=== PATIENT | female | born 1990 | race Hispanic/Latino ===

== ENCOUNTER 2021-02-25 13:52 | Emergency (ER) | payer BC, SELFPAY ==
[2021-02-25 14:47] LABS: Absolute Lymphocytes (CBC) 2.5 K/uL (0.7-4.9); Hematocrit 38.5 % (36.0-45.0); Lymphocytes % 31.3 % (15.3-44.8); MPV 8.8 fL (7.6-11.3); RBC Red Blood Cell Count 4.27 M/uL (3.86-4.86)
[2021-02-25 15:05] LABS: BUN Blood Urea Nitrogen 6 mg/dL (7-18); Bicarbonate 24 mmol/L (21-32); Glucose Level 85 mg/dL (74-106); Potassium 3.3 mmol/L (3.5-5.1); Sodium Level 136 mmol/L (136-145)
[2021-02-25 15:19] LABS: HCG, Quantitative 6169 mIU/mL (1-3)
[2021-02-25 16:03] LABS: Urine Blood 3+ (Negative); Urine Glucose Negative (Negative); Urine Protein 1+ (Negative); Urine Specific Gravity 1.025 (1.005-1.030)
[2021-02-25 16:13] LABS: Urine Specific Gravity/Preg 1.025 (1.005-1.030)
--- NOTE | 2021-02-25 16:52 | RAD REPORT ---
EXAM DESCRIPTION: US - Transvaginal OB - 02/25/2021 4:30 pm CLINICAL HISTORY: with spontaneous COMPARISON: None. FINDINGS: The uterus measures 9 x 4 x 5 centimeters. The endometrial stripe measures 4 millimeters. A gestational sac is not seen. Ovaries are normal in size and echotexture.. The right and left adnexa unremarkable No significant free fluid IMPRESSION: Nonvisualization of a gestational sac within the endometrium. These findings presumably indicate a complete . Given the positive beta HCG other considerations include a very early or ectopic . This all should be correlated clinically and with serial beta HCG levels. Followup endovaginal sonog jenise may be helpful for re-evaluation
--- NOTE | 2021-02-25 17:20 | ER ---
Nurse's Notes [facility] Name: Jose Chen Age: 30 yrs Sex: Female : 1990 Arrival Date: 02/25/2021 Time: 13:54 Bed 18 Private MD: Diagnosis: Complete or unspecified spontaneous with other complications Presentation: 02/25 14:01 Chief complaint: Patient states: Had a miscarriage 3 weeks ago and has been bleeding ww since then. She admits to passing large clots and having sharp pelvic/uterine pain. Coronavirus screen: Vaccine status: Patient reports receiving the 2nd dose of the covid vaccine. Client denies travel out of the [place] in the last 14 days. Ebola Screen: Patient negative for fever greater than or equal to 101.5 degrees Fahrenheit, and additional compatible Ebola Virus Disease symptoms Patient denies exposure to infectious person. Patient denies travel to an Ebola-affected area in the 21 days before illness onset. Initial Sepsis Screen: Does the patient meet any 2 criteria? No. Patient's initial sepsis screen is negative. Does the patient have a suspected source of infection? No. Patient's initial sepsis screen is negative. Risk Assessment: Do you want to hurt yourself or someone else? Patient reports no desire to harm self or others. Onset of symptoms was February 08, 2021. 14:01 Method Of Arrival: Ambulatory ww 14:01 Acuity: ANA 3 ww Triage Assessment: 14:03 General: Appears in no apparent distress. comfortable, Behavior is calm, cooperative, ww appropriate for age. Pain: Complains of pain in suprapubic area. EENT: No deficits noted. No signs and/or symptoms were reported regarding the EENT system. Neuro: Level of Consciousness is awake, alert, obeys commands, Oriented to person, place, time, situation, Speech is normal. Cardiovascular: Denies chest pain, shortness of breath, Capillary refill < 3 seconds Patient's skin is warm and dry. Respiratory: Airway is patent Respiratory effort is even, unlabored, Respiratory pattern is regular, symmetrical. GI: No deficits noted. No signs and/or symptoms were reported involving the gastrointestinal system. : No deficits noted. Reports vaginal bleeding that is with clots. Derm: Skin is intact, is healthy with good turgor, Skin is pink, warm \\T\\ dry. Musculoskeletal: No deficits noted. No signs and/or symptoms reported regarding the musculoskeletal system. 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 - Social history:: Smoking status: Reported history of juuling and/or vaping. Screenin:04 Abuse screen: Denies threats or abuse. Denies injuries from another. Nutritional ww screening: No deficits noted. Tuberculosis screening: No symptoms or risk factors identified. Fall Risk None identified. Assessment: 14:40 General: Appears in no apparent distress. comfortable, Behavior is calm, cooperative. eo2 Neuro: Level of Consciousness is awake, alert, obeys commands, Oriented to person, place, time, situation, Reports dizziness, "lightheadedness". Denies headache. Cardiovascular: No deficits noted. Denies chest pain, shortness of breath. Respiratory: No deficits noted. Airway is patent Breath sounds are clear bilaterally. GI: Reports lower abdominal pain, nausea, since onset today around 1330 after eating lunch. Pt reports miscarriage from "1st weekend in February", reports she's been bleeding since the miscarriage and started passing "blood clots on ", pt reports using 1pad/hr. . : No signs and/or symptoms were reported regarding the genitourinary system. Vital Signs: 14:01 BP 112 / 55; Pulse 87; Resp 18; Temp 97.9; Pulse Ox 100% on R/A; Weight 77.11 kg; ww Height 5 ft. 4 in. (162.56 cm); Pain 3/10; 14:40 BP 108 / 65; Pulse 75; Resp 15; Pulse Ox 100% ; Pain 4/10; eo2 16:37 BP 106 / 57; Pulse 68; Resp 15; Pulse Ox 100% ; Pain 3/10; eo2 17:00 BP 103 / 65; Pulse 75; Resp 16; Pulse Ox 100% ; Pain 2/10; eo2 14:01 Body Mass Index 29.18 (77.11 kg, 162.56 cm) ED Course: 13:54 Patient arrived in ED. ds1 14:03 Triage completed. ww 14:03 Arm band placed on left wrist. ww 14:07 Mark Owen PA is PHCP. jr8 14:07 Darrion Cevallos MD is Attending Physician. jr8 14:16 Araseli Bell, RN is Primary Nurse. eo2 14:30 Inserted saline lock: 20 gauge in right antecubital area, using aseptic technique. eo2 Blood collected. 14:44 Patient has correct armband on for positive identification. Pulse ox on. NIBP on. Door eo2 closed. Noise minimized. Warm blanket given. 14:44 No provider procedures requiring assistance completed. eo2 16:30 Transvaginal OB US In Process Unspecified. EDAK 17:18 Will Gaspar MD is Referral Physician. jr8 17:48 IV discontinued, intact, bleeding controlled, No redness/swelling at site. ld1 Administered Medications: 17:31 Drug: Ketorolac 30 mg Route: IVP; Site: right antecubital; eo2 17:48 Follow up: Response: No adverse reaction ld1 Outcome: 17:19 Discharge ordered by . jr8 17:48 Discharged to home ambulatory, with family. ld1 17:48 Condition: stable 17:48 Discharge instructions given to patient, Instructed on discharge instructions, follow up and referral plans. Demonstrated understanding of instructions, follow-up care. 17:49 Patient left the ED. ld1 Signatures: Dispatcher [employer] [facility] VásquezLakshmi levi ds1 Mark Owen PA PA jr8 Bee Zelaya RN RN ld1 Lucille Marquez RN RN ww Araseli Bell RN RN eo2
--- NOTE | 2021-02-25 17:20 | EDPHYS ---
Physician Documentation [facility] Name: Jose Chen Age: 30 yrs Sex: Female : 1990 Arrival Date: 02/25/2021 Time: 13:54 Bed 18 Private MD: ED Physician Darrion Cevallos HPI: 02/25 15:59 This 30 yrs old Female presents to ER via Ambulatory with complaints of Pelvic jr8 Pain, Low abd pain. 15:59 The patient has experienced a previous episode. The patient has not recently seen a jr8 physician. This is a 30-year-old female that presented to the emergency room with complaints of continued vaginal bleeding and lower abdominal pain. Patient stated that her last menstrual period was on January 02 and about 2 weeks ago had a miscarriage. Patient stated that she has had continuous bleeding with large clots since then and for the past week has now had lower abdominal cramping that is intermittent in nature. Got so bad today that she presented to the emergency room for further evaluation. Has not seen an cupola man and has not had official ultrasound since her [id number] test was completed. 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 - Social history:: Smoking status: Reported history of juuling and/or vaping. ROS: 15:59 Eyes: Negative for injury, pain, redness, and discharge, ENT: Negative for injury, jr8 pain, and discharge, Neck: Negative for injury, pain, and swelling, Cardiovascular: Negative for chest pain, palpitations, and edema, Respiratory: Negative for shortness of breath, cough, wheezing, and pleuritic chest pain, Abdomen/GI: Negative for abdominal pain, nausea, vomiting, diarrhea, and constipation, Back: Negative for injury and pain, MS/Extremity: Negative for injury and deformity, Skin: Negative for injury, rash, and discoloration, Neuro: Negative for headache, weakness, numbness, tingling, and seizure. 15:59 : Positive for vaginal bleeding, Lower pelvic cramping. Exam: 15:59 Constitutional: This is a well developed, well nourished patient who is awake, alert, jr8 and in no acute distress. Cardiovascular: Regular rate and rhythm with a normal S1 and S2. No gallops, murmurs, or rubs. Normal PMI, no JVD. No pulse deficits. Respiratory: Lungs have equal breath sounds bilaterally, clear to auscultation and percussion. No rales, rhonchi or wheezes noted. No increased work of breathing, no retractions or nasal flaring. 15:59 Back: No spinal tenderness. No costovertebral tenderness. Full range of motion. Skin: Warm, dry with normal turgor. Normal color with no rashes, no lesions, and no evidence of cellulitis. MS/ Extremity: Pulses equal, no cyanosis. Neurovascular intact. Full, normal range of motion. Neuro: Awake and alert, GCS 15, oriented to person, place, time, and situation. Cranial nerves II-XII grossly intact. Motor strength 5/5 in all extremities. Sensory grossly intact. 15:59 Abdomen/GI: Inspection: abdomen appears normal, Bowel sounds: active, all quadrants, Palpation: soft, in all quadrants, mild abdominal tenderness, in the left lower quadrant, mass, is not appreciated, rebound tenderness, is not appreciated, voluntary guarding, is not appreciated, involuntary guarding, is not appreciated, no appreciated organomegaly, Indicators: McBurney's point is not tender, Deluca's sign is negative, Rovsing's sign is negative, Liver: tenderness, is not appreciated. Vital Signs: 14:01 BP 112 / 55; Pulse 87; Resp 18; Temp 97.9; Pulse Ox 100% on R/A; Weight 77.11 kg; ww Height 5 ft. 4 in. (162.56 cm); Pain 3/10; 14:40 BP 108 / 65; Pulse 75; Resp 15; Pulse Ox 100% ; Pain 4/10; eo2 16:37 BP 106 / 57; Pulse 68; Resp 15; Pulse Ox 100% ; Pain 3/10; eo2 17:00 BP 103 / 65; Pulse 75; Resp 16; Pulse Ox 100% ; Pain 2/10; eo2 14:01 Body Mass Index 29.18 (77.11 kg, 162.56 cm) ww MDM: 14:08 Patient medically screened. 8 15:59 Data reviewed: vital signs, nurses notes, lab test result(s), radiologic studies, jr8 ultrasound. Data interpreted: Pulse oximetry: on room air is 100 %. Interpretation: normal. Counseling: I had a detailed discussion with the patient and/or guardian regarding: the historical points, exam findings, and any diagnostic results supporting the discharge/admit diagnosis, lab results, radiology results. 17:17 ED course: Discussed hCG and ultrasound with Dr. Gaspar. Recommends 48-hour redraw and nav will see her on regardless. Discussed this with patient and she is good with this at this time as well.. 02/25 14:08 Order name: Abo/rh Typing; Complete Time: 15:47 [facility] 02/25 14:08 Order name: Basic Metabolic Panel; Complete Time: 15:47 [facility] 02/25 14:08 Order name: CBC with Diff; Complete Time: 15:47 [facility] 02/25 14:08 Order name: Quantitative Hcg; Complete Time: 15:47 [facility] 02/25 16:02 Order name: Urine Dipstick-Ancillary; Complete Time: 16:09 EDUT 02/25 16:03 Order name: Urine --Ancillary (enter results); Complete Time: 16:15 02/25 14:08 Order name: IV Saline Lock; Complete Time: 14:45 [facility] 02/25 14:08 Order name: Labs collected and sent; Complete Time: 14:45 [facility] 02/25 14:08 Order name: NPO; Complete Time: 14:45 [facility] 02/25 14:08 Order name: Urine Dipstick-Ancillary (obtain specimen); Complete Time: 16:36 [facility] 02/25 14:08 Order name: Urine Test (obtain specimen); Complete Time: 16:35 [facility] 02/25 15:48 Order name: Transvaginal OB US; Complete Time: 17:01 [facility] Administered Medications: 17:31 Drug: Ketorolac 30 mg Route: IVP; Site: right antecubital; eo2 17:48 Follow up: Response: No adverse reaction ld1 Disposition: 01/19 08:18 Co-signature as Attending Physician, Darrion Cevallos MD I agree with the assessment and aziza plan of care. Disposition Summary: 02/25/21 17:19 Discharge Ordered Location: Home jr Problem: new jr8 Symptoms: have improved jr8 Condition: Stable jr8 Diagnosis - Complete or unspecified spontaneous with other complications jr8 Followup: jr8 - With: Will Gaspar MD - When: 48 Hours - Reason: Recheck today's complaints, Continuance of care, Re-evaluation by your physician Followup: jr8 - With: Emergency Department - When: 48 Hours - Reason: Repeat Beta-HCG (48 Hours) Discharge Instructions: - Discharge Summary Sheet jr8 - Ectopic jr8 - Miscarriage jr8 Forms: - Medication Reconciliation Form jr8 - Thank You Letter jr8 - Antibiotic Education jr8 - Prescription Opioid Use jr8 Signatures: Dispatcher [employer] [facility] Darrion Cevallos MD MD cha Roszak, Josh, PA PA jr8 Lucille Marquez RN RN ww Araseli Bell RN RN eo2 Bee Zelaya RN ld1
[2021-02-25] MEDS ORDERED: KETOROLAC 30 MG/ML INJ ONE (17:32)
[2021-02-25 18:00] VITALS: TEMP 97.9; O2SAT 100
[2021-02-25 18:14] VITALS: BP 103/65
== END 2021-02-25 17:49 | disposition home or self-care (01) ==
LOC: ER 13:52
DX: O03.89 Complete or unspecified spontaneous abortion with other complications (principal)
CPT/HCPCS: 36415; 76817; 80048; 81003; 81025; 84702; 85025; 86900; 86901; 96374; 99284

== ENCOUNTER 2021-03-05 11:34 | Emergency (ER) | payer OTHER ==
[2021-03-05] MEDS ORDERED: ONDANSETRON 4 MG/2 ML VIAL ONE (12:12)
[2021-03-05] MEDS ORDERED: NA CHLORIDE 0.9% 1,000 ML ONE (12:12)
[2021-03-05] MEDS ORDERED: DICYCLOMINE HCL 20 MG/2 ML AMP IM ONE (12:12)
[2021-03-05 12:41] LABS: Absolute Lymphocytes (CBC) 1.5 K/uL (0.7-4.9); Hematocrit 37.6 % (36.0-45.0); Lymphocytes % 17.5 % (15.3-44.8); RBC Red Blood Cell Count 4.12 M/uL (3.86-4.86)
[2021-03-05 13:13] LABS: Albumin 3.6 g/dL (3.4-5.0); Bilirubin Direct 0.1 mg/dL (0-0.2); Bilirubin Total 0.4 mg/dL (0.2-1.0); Potassium 4.4 mmol/L (3.5-5.1); Protein, Total 7.1 g/dL (6.4-8.2)
[2021-03-05 13:28] LABS: Urine Blood 2+ (Negative); Urine Glucose Negative (Negative); Urine Protein Negative (Negative)
[2021-03-05 13:39] LABS: SARS-COV-2 RT PCR NEGATIVE (NEGATIVE)
[2021-03-05 13:41] LABS: Urine Amorphous Sediment 3+ /HPF (NONE SEEN); Urine Bacteria 20-50 /HPF (<20)
[2021-03-05] MEDS ORDERED: NA CHLORIDE 0.9% 2,000 ML ONE (16:02)
[2021-03-05] MEDS ORDERED: MORPHINE 2 MG/ML SYR ONE (16:02)
--- NOTE | 2021-03-05 16:10 | RAD REPORT ---
EXAM DESCRIPTION: US - Transvaginal OB - 03/05/2021 3:18 pm CLINICAL HISTORY: lower abdomen pain, with elevating beta HCG COMPARISON: Transvaginal OB dated 02/25/2021 TECHNIQUE: Endovaginal sonography was performed but was limited due to patient pain. Limited transab dominal assessment performed as well. FINDINGS: No intrauterine gestational sac or sac remnant. No hematoma or other endometrial abnormali ty seen. No myometrial mass identified. Uterine size is similar to the February 25 study. The left adnexa there is a 16-17 mm rounded cystic mass. Focal echogenic material within this cystic mass. This has the appearance of a gestational sac and pole. Cardiac activity could not be conf irmed with what appears to be the pole. A yolk sac was not seen. There is surrounding hypervasc ular echogenic tissue in a very typical "Ring of fire" appearance. Surrounding tissues are a amorphou s. A clearly definable left ovary was not seen. The heterogeneous material surrounding the left adnex al gestational sac could be hemorrhagic material. There is fluid in the cul de sac is well is echogen ic material that may be hemorrhagic byproducts. Right ovary could not be clearly defined due to bowel. No right adnexal mass was identified. The size of the ectopic mass is difficult due to poor demarcation with surrounding tissues. Estimated size is 2.1 x 2.1 x 3.0 cm. Findings were telephoned to the referring clinician at the time of the study. IMPRESSION: Left ectopic . The left adnexal gestational sac contains a pole but no ca rdiac activity could be confirmed. Fluid and hemorrhagic material identified in the cul de sac and the heterogeneous tissue surrounding the ectopic is probably hemorrhagic material as well. There is no intrauterine gestational sac, sac remnant or hematoma.
--- NOTE | 2021-03-05 18:40 | EDPHYS ---
Physician Documentation [facility] Name: Jose Chen Age: 30 yrs Sex: Female : 1990 Arrival Date: 03/05/2021 Time: 11:35 Bed 17 Private MD: ED Physician Kianna Jasso HPI: 03/05 11:55 This 30 yrs old Female presents to ER via EMS with complaints of Abdominal cp Pain. 11:55 The patient presents with abdominal pain in the lower abdomen. cp 11:55 Onset: The symptoms/episode began/occurred gradually, and became worse today. cp 11:55 The symptoms do not radiate. Associated signs and symptoms: Pertinent negatives: cp vaginal bleeding. 11:55 The symptoms are described as constant. Severity of pain: in the emergency department cp the pain. 11:55 Patient returns to ED after being seen 02-25-2021 for vaginal bleeding during . cp Patient reports she was diagnosed with miscarriage and instructed to f/u with DR Burnett. Patient reports she did not f/u, vaginal bleeding stopped but pain continued and is now worse today. 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 ROS: 12:00 Constitutional: Negative for body aches, chills, fever, poor PO intake. cp 12:00 Eyes: Negative for injury, pain, redness, and discharge. cp 12:00 ENT: Negative for ear pain, sore throat, difficulty swallowing, difficulty handling secretions. 12:00 Respiratory: Negative for cough, shortness of breath, wheezing. 12:00 Abdomen/GI: Positive for abdominal pain, of the suprapubic area, Negative for vomiting, diarrhea, constipation. 12:00 Back: Negative for radiated pain. 12:00 : Negative for urinary symptoms, vaginal bleeding, vaginal discharge. 12:00 Neuro: Negative for altered mental status, headache, weakness. 12:00 All other systems are negative. Exam: 12:05 Constitutional: The patient appears in no acute distress, alert, awake, non-toxic, well cp developed, well nourished. 12:05 Head/Face: Normocephalic, atraumatic. cp 12:05 Eyes: Periorbital structures: appear normal, Conjunctiva: normal, no exudate, no injection, Lids and lashes: appear normal, bilaterally. 12:05 ENT: External ear(s): are unremarkable, Nose: is normal, Mouth: Lips: moist, Oral mucosa: moist, Posterior pharynx: Airway: no evidence of obstruction, patent. 12:05 Chest/axilla: Inspection: normal, Palpation: is normal, no crepitus, no tenderness. 12:05 Cardiovascular: Rate: normal, Rhythm: regular. 12:05 Respiratory: the patient does not display signs of respiratory distress, Respirations: normal, no use of accessory muscles, Breath sounds: are clear throughout, no decreased breath sounds. 12:05 Abdomen/GI: Inspection: abdomen appears normal, Bowel sounds: active, all quadrants, cp Palpation: soft, in all quadrants, moderate abdominal tenderness, in the suprapubic area, rebound tenderness, is not appreciated, voluntary guarding, is elicited in the suprapubic area. 12:05 Back: CVA tenderness, is absent. cp 12:05 Neuro: Orientation: to person, place \\T\\ time. Mentation: is normal, Motor: moves all fours, strength is normal. Vital Signs: 11:35 BP 112 / 63; Pulse 63; Resp 16; Temp 98.4; Pulse Ox 100% ; bp 12:56 BP 98 / 53; Pulse 51; Resp 18; Pulse Ox 100% on R/A; ld1 14:12 BP 102 / 65; Pulse 56; Resp 16; Pulse Ox 100% ; bp 15:19 BP 102 / 61; Pulse 56; Resp 16; Pulse Ox 100% ; bp 16:00 BP 95 / 66; Pulse 60; Resp 16; Pulse Ox 100% ; bp 17:00 BP 98 / 53; Pulse 51; Resp 15; Pulse Ox 100% ; bp 18:00 BP 101 / 63; Pulse 53; Resp 16; Pulse Ox 100% ; bp MDM: 11:36 Patient medically screened. cp 15:44 Physician consultation: Will Burnett MD was called at 15:40, regarding consult, cp patient's condition, called to L\\T\\D and left message, message left on voicemail. 15:45 Data reviewed: vital signs, nurses notes, lab test result(s), radiologic studies, cp ultrasound. 18:00 Physician consultation: Will Burnett MD was called at 18:00, message left on cp voicemail, labor and delivery contacted and reports DR Burnett has left the hospital, attempt to call home. 18:32 Physician consultation: Will Burnett MD was contacted at 18:25, regarding consult, cp patient's condition, discussed option of laparoscopic surgery to remove ectopic vs methotrexate and observation. If DR Naidu is available for laparoscopic procedure admit to her or if patient prefers methotrexate admit to him. DR burnett returned call at [address] Naidu is out of town and to transfer patient if laparoscopic procedure is preferred. 19:04 Physician consultation: was contacted at 19:00, regarding regarding transfer, [facility] consult, patient's condition, accepting physician will be DR Roland. 03/05 11:48 Order name: Basic Metabolic Panel; Complete Time: 14:29 cp 03/05 14:29 Interpretation: Normal except: CL 110; GFR 75. cp 03/05 11:48 Order name: CBC with Diff; Complete Time: 12:52 cp 03/05 12:52 Interpretation: Normal except: PRIMO% 75.9. cp 03/05 11:48 Order name: Hepatic Function; Complete Time: 14:29 cp 03/05 11:48 Order name: Lipase; Complete Time: 14:29 cp 03/05 11:48 Order name: Beta hcg; Complete Time: 14:29 cp 03/05 14:29 Interpretation: Abnormal: HCGQ 72881. cp 03/05 11:48 Order name: COVID-19/FLU A+B (Document "Date of Onset" if Symptomatic); Complete Time: cp 14:03/05 11:48 Order name: Urine Microscopic Only; Complete Time: 14:29 cp 03/05 15:45 Interpretation: Normal except: UWBC 10-20; URBC 5-10; UBACT 20-50; SQEPI 5-10; AMORPH cp 3+. 03/05 13:28 Order name: Urine Dipstick-Ancillary; Complete Time: 14:29 EDMS 03/05 13:29 Order name: Urine --Ancillary (enter results); Complete Time: 14:29 bd 03/05 13:42 Order name: Urine Culture EDTN 03/05 14:31 Order name: US Transvaginal Ob; Complete Time: 16:52 cp 03/05 11:48 Order name: IV Saline Lock; Complete Time: 12:30 cp 03/05 11:48 Order name: Labs collected and sent; Complete Time: 12:30 cp 03/05 11:48 Order name: Urine Dipstick-Ancillary (obtain specimen); Complete Time: 13:28 cp 03/05 11:48 Order name: Urine Test (obtain specimen); Complete Time: 13:28 cp 03/05 17:04 Order name: NPO; Complete Time: 17:42 cp Administered Medications: 12:29 Drug: NS 0.9% 1000 ml Route: IV; Rate: 1 bolus; Site: right antecubital; bp 12:29 Drug: Zofran (Ondansetron) 4 mg Route: IVP; Site: right antecubital; bp 15:19 Follow up: Response: No adverse reaction bp 12:29 Drug: Bentyl (dicyclomine) 20 mg Route: IM; Site: right gluteus; bp 15:19 Follow up: Response: No adverse reaction bp 15:45 Drug: morphine 2 mg Route: IVP; Site: right antecubital; bp 15:45 Drug: NS 0.9% 1000 ml Route: IV; Rate: 1 bolus; Site: right antecubital; bp 15:45 Drug: NS 0.9% 1000 ml Route: IV; Rate: 125 ml/hr; Site: right antecubital; bp 18:50 Drug: Ketorolac 15 mg Route: IVP; Site: right antecubital; bp Disposition Summary: 03/05/21 18:38 Transfer Ordered Transfer Location: Other Acute Care Facility cp Reason: Higher level of care cp Condition: Stable cp Problem: new cp Symptoms: have improved cp Accepting Physician: Doctor(03/05/21 20:16) tk1 Diagnosis - Other ectopic without intrauterine - left cp Forms: - Medication Reconciliation Form cp - SBAR form cp Signatures: Dispatcher [employer] [facility] Darrion Luna PA PA cp Peltier, Brian, RN RN Ellen Piper tk1 Corrections: (The following items were deleted from the chart) 11:44 11:38 Allergies: Tetanus Vaccines \\T\\ Toxoid; bp 15:33 15:31 4, Full Term 1, 2, Living 1, LMP 01/06/2021, Verified, cp EDC 10/13/2021, Gestational age from LMP: 8 weeks 2 days cp 20:16 18:38 Doctor cp tk1
--- NOTE | 2021-03-05 18:40 | ER ---
Nurse's Notes [facility] Name: Jose Chen Age: 30 yrs Sex: Female : 1990 Arrival Date: 03/05/2021 Time: 11:35 Bed 17 Private MD: Diagnosis: Other ectopic without intrauterine -left Presentation: 03/05 11:35 Chief complaint: EMS states: MISCARRIAGE ON 02/08, . BLQ PAIN WORSE TODAY. bp Coronavirus screen: At this time, the client does not indicate any symptoms associated with coronavirus-19. Ebola Screen: No symptoms or risks identified at this time. Initial Sepsis Screen: Does the patient meet any 2 criteria? No. Patient's initial sepsis screen is negative. Does the patient have a suspected source of infection? No. Patient's initial sepsis screen is negative. Risk Assessment: Do you want to hurt yourself or someone else? Patient reports no desire to harm self or others. Onset of symptoms was March 05, 2021. 11:35 Method Of Arrival: EMS: [facility] bp 11:35 Acuity: ANA 3 bp Triage Assessment: 11:45 General: Appears distressed, uncomfortable, obese, Behavior is cooperative, appropriate bp for age, anxious. Pain: Complains of pain in right lower quadrant and left lower quadrant. EENT: No deficits noted. Neuro: No deficits noted. Cardiovascular: No deficits noted. Respiratory: No deficits noted. GI: Reports lower abdominal pain, nausea. : No signs and/or symptoms were reported regarding the genitourinary system. Derm: No deficits noted. Musculoskeletal: No deficits noted. 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 Screenin:45 Abuse screen: Denies threats or abuse. Denies injuries from another. Nutritional bp screening: No deficits noted. Tuberculosis screening: No symptoms or risk factors identified. Fall Risk None identified. Assessment: 11:45 General: SEE TRIAGE NOTE. bp 12:56 Reassessment: Patient appears in no apparent distress at this time. ld1 14:14 Reassessment: No changes from previously documented assessment. Patient and/or family bp updated on plan of care and expected duration. Pain level reassessed. 15:18 Reassessment: PT RETURNED FROM [facility]. bp 16:00 Reassessment: No changes from previously documented assessment. Patient and/or family bp updated on plan of care and expected duration. Pain level reassessed. 18:00 Reassessment: No changes from previously documented assessment. Patient and/or family bp updated on plan of care and expected duration. Pain level reassessed. OB CONSULTED BY PROVIDER. PT NPO, DISPO PENDING. 19:17 Reassessment: REPORT TO LEATHA DE SOUZA AT [facility] FOR RM [id number]. bp Vital Signs: 11:35 BP 112 / 63; Pulse 63; Resp 16; Temp 98.4; Pulse Ox 100% ; bp 12:56 BP 98 / 53; Pulse 51; Resp 18; Pulse Ox 100% on R/A; ld1 14:12 BP 102 / 65; Pulse 56; Resp 16; Pulse Ox 100% ; bp 15:19 BP 102 / 61; Pulse 56; Resp 16; Pulse Ox 100% ; bp 16:00 BP 95 / 66; Pulse 60; Resp 16; Pulse Ox 100% ; bp 17:00 BP 98 / 53; Pulse 51; Resp 15; Pulse Ox 100% ; bp 18:00 BP 101 / 63; Pulse 53; Resp 16; Pulse Ox 100% ; bp ED Course: 11:35 Patient arrived in ED. bp 11:36 Darrion Luna PA is PHCP. cp 11:36 Kianna Jasso MD is Attending Physician. cp 11:38 Triage completed. bp 11:45 Patient has correct armband on for positive identification. Bed in low position. Call bp light in reach. Side rails up X2. 11:53 Saji Moses, AP is Primary Nurse. bp 12:30 Inserted saline lock: 20 gauge in right antecubital area, using aseptic technique. bp Blood collected. 13:28 Urine Microscopic Only Sent. ld1 15:14 US Transvaginal Ob In Process Unspecified. EDMS 18:[address] [facility]. bd 18:52 pt denied at [facility]. initiated transfer to [facility]. bd Administered Medications: 12:29 Drug: NS 0.9% 1000 ml Route: IV; Rate: 1 bolus; Site: right antecubital; bp 12:29 Drug: Zofran (Ondansetron) 4 mg Route: IVP; Site: right antecubital; bp 15:19 Follow up: Response: No adverse reaction bp 12:29 Drug: Bentyl (dicyclomine) 20 mg Route: IM; Site: right gluteus; bp 15:19 Follow up: Response: No adverse reaction bp 15:45 Drug: morphine 2 mg Route: IVP; Site: right antecubital; bp 15:45 Drug: NS 0.9% 1000 ml Route: IV; Rate: 1 bolus; Site: right antecubital; bp 15:45 Drug: NS 0.9% 1000 ml Route: IV; Rate: 125 ml/hr; Site: right antecubital; bp 18:50 Drug: Ketorolac 15 mg Route: IVP; Site: right antecubital; bp Outcome: 18:38 ER care complete, transfer ordered by MD. alejandro 20:16 Patient left the ED. tk1 Signatures: Dispatcher [employer] EDMS Steffany Ward Corey, PA PA Saji Victor RN RN Bee Brewer RN RN ld1 Ellen Chacon tk1 Corrections: (The following items were deleted from the chart) 11:44 11:38 Allergies: Tetanus Vaccines \T\ Toxoid; bp bp
[2021-03-05] MEDS ORDERED: KETOROLAC 30 MG/ML INJ ONE (18:51)
[2021-03-05 20:24] VITALS: TEMP 98.4; O2SAT 100
[2021-03-05 20:32] VITALS: BP 101/63
== END 2021-03-05 20:16 ==
LOC: ER 11:34
DX: O00.80 Other ectopic pregnancy without intrauterine pregnancy (principal); Z20.822 Contact with and (suspected) exposure to COVID-19
CPT/HCPCS: 87088; 85025; 87086; 80048; 36415; 81025; 80076; 84702; 83690; 0240U; 76817; J0500; J2270; J7030 ×2; J2405; 81003; 81015; 96372; 96374; 96375; 99284